=== PATIENT | female | born 2000 | race Caucasian/White ===

== ENCOUNTER 2023-09-25 09:59 | Emergency (ER) | payer BC ==
[2023-09-25 11:09] LABS: HIV (1/2) Antibody/Antigen NONREACTIVE (NonReactive); HIV 1/2 INDEX 0.05 S/CO (<1.00)
[2023-09-25 11:11] LABS: Hep C IgG Ab NONREACTIVE S/CO (NonReactive)
[2023-09-25 11:42] LABS: HBSAB Concentration 1795.21 mIU/mL; Hep B Surf AB REACTIVE (NonReactive)
== END 2023-09-25 11:46 | disposition home or self-care (01) ==
LOC: ERS 09:59
DX: S61.230A Puncture wound without foreign body of right index finger without damage to nail, initial encounter (principal); W46.0XXA Contact with hypodermic needle, initial encounter
CPT/HCPCS: 36415; 86706; 86803; 99282